=== PATIENT | male | born 1935 | race African-American/Black ===

== ENCOUNTER 2018-08-28 14:04 | Inpatient (IN) | payer OTHER ==
[~2018-08-28] VITALS: Ht 170.2 cm; Wt 74.8 kg
[~2018-08-28 14:04] MED LIST: LOSARTAN POTASS50 MG
[2018-08-28] MEDS ORDERED: COZAAR100 MG (14:35)
--- NOTE | 2018-08-28 14:40 | NUR ---
SE RECIBE PTE ALERTA Y ORIENTADO X3 EL CUAL REFIERE VENIR CON REFERIDO MEDICO EN MANO EL CUAL REFIEREN ENVIAR A PTE POR ANEMIA. PTE AL MOMENTO REFIERE 0 DE DOLOR AL MOMENTO. PTE SE COLOCA EN AREA DE OBSERVACION.
--- NOTE | 2018-08-28 15:59 | NUR ---
PACIENTE ALERTA Y ORIENTADO X3. MANEJADO POR MR. MONAE QUIEN ORIENTA A PACIENTE SOBRE TX Y PROCEDIMIENTO A REALIZAR Y REFIERE ENTENDER. ADMINISTRA MEDICAMENTOS CISCO ORDEN MEDICA. REALIZA MUESTRAS DE LABORATORIO BAJO MEDIDAS ASEPTICAS. CANALIZACION PATENTE Y BLADIMIR DE EDEMA Y ERITEMA. SE MANTIENE BAJO OBSERVACION POR CAMBIOS SIGNIFICATIVOS.
--- NOTE | 2018-08-28 23:15 | NUR ---
PT ALERTA Y ORIENTADO X3 ESFERAS EN COMPANIA DE FAMILIAR. EN TREVOR CON BARANDAS ELEVADAS Y FRENOS COLOCADOS. HEPARIN LOCK X2, VENOPUNCION EN ANTEBRAZO JOHN PATENTE. IVFLUIDS PATENTE. BAJANDO IZAIAH UNIDAD DE PRBC FRACCIONADA [id number]. CONSENTIMIENTO PARA TRANSFUCION DE AUREA Y JORGITO DERIVADOS FIRMADO POR DR REZA QUEZADA Y PT. PT [place]. SE MANTIENE BAJO OBSERVACION POR CAMBIOS EN SARIAH. PRBC BAJANDO POR IVPUMP.
[2018-08-29] MEDS ORDERED: LOSARTAN POTAS100 MG PO (11:45)
[2018-09-03] MEDS ORDERED: AMLODIPINE BESY10 MG PO (10:01)
[2018-09-03] MEDS ORDERED: B-100 COMPLEX100 MG PO (10:02)
== END 2018-09-03 13:45 | disposition home or self-care (01) | DRG 683 ==
LOC: ER 14:04 → MEDJ 08-29 00:13 → SEC-K 08-29 00:13 → MEDJ 08-29 14:04
PROVIDERS: ADMIT Internal Medicine
PROC: 30233N1 Transfusion of Nonautologous Red Blood Cells into Peripheral Vein, Percutaneous Approach (ICD-10-PCS; principal; 2018-08-29)
DX: I12.9 Hypertensive chronic kidney disease with stage 1 through stage 4 chronic kidney disease, or unspecified chronic kidney disease (principal); N18.4 Chronic kidney disease, stage 4 (severe); N17.9 Acute kidney failure, unspecified; N17.8 Other acute kidney failure; R78.81 Bacteremia; D63.1 Anemia in chronic kidney disease; Z85.46 Personal history of malignant neoplasm of prostate; D50.0 Iron deficiency anemia secondary to blood loss (chronic); Z08 Encounter for follow-up examination after completed treatment for malignant neoplasm

== ENCOUNTER → 2018-11-22 07:44 | Outpatient (CLI) | payer OTHER ==
[~2018-11-22 07:44] MED LIST changes: +AMLODIPINE BESY10 MG PO; +B-100 COMPLEX100 MG PO; +COZAAR100 MG; +LOSARTAN POTAS100 MG PO
== END | disposition home or self-care (01) ==
LOC: LAB 07:44
DX: D50.0 Iron deficiency anemia secondary to blood loss (chronic) (principal); R19.5 Other fecal abnormalities; N18.4 Chronic kidney disease, stage 4 (severe); D63.1 Anemia in chronic kidney disease; I10 Essential (primary) hypertension; D50.8 Other iron deficiency anemias; D51.8 Other vitamin B12 deficiency anemias; D55.0 Anemia due to glucose-6-phosphate dehydrogenase [G6PD] deficiency; Z80.42 Family history of malignant neoplasm of prostate; R80.8 Other proteinuria

== ENCOUNTER 2020-11-22 18:53 | Inpatient (IN) | payer OTHER ==
[~2020-11-22] VITALS: Ht 170.2 cm; Wt 68.9 kg
[2020-11-25] MEDS ORDERED: FOLIC ACID1 MG (09:54)
== END 2020-11-25 11:11 | disposition home or self-care (01) | DRG 812 ==
LOC: ER 18:53 → MEDI 11-23 13:54
PROVIDERS: ADMIT Internal Medicine; ATTEND Internal Medicine
PROC: 30233N1 Transfusion of Nonautologous Red Blood Cells into Peripheral Vein, Percutaneous Approach (ICD-10-PCS; principal; 2020-11-23)
DX: D50.0 Iron deficiency anemia secondary to blood loss (chronic) (principal); N18.4 Chronic kidney disease, stage 4 (severe); R31.0 Gross hematuria; Z08 Encounter for follow-up examination after completed treatment for malignant neoplasm; Z85.46 Personal history of malignant neoplasm of prostate; I12.9 Hypertensive chronic kidney disease with stage 1 through stage 4 chronic kidney disease, or unspecified chronic kidney disease

== ENCOUNTER 2021-12-14 14:15 | Inpatient (IN) | payer OTHER ==
[~2021-12-14] VITALS: Ht 167.6 cm; Wt 65.8 kg
[~2021-12-14 14:15] MED LIST changes: +FOLIC ACID1 MG
[2021-12-18] MEDS ORDERED: LIPITOR40 MG PO (16:46)
[2021-12-18] MEDS ORDERED: CARdura 2MG TABLET PO (16:46)
[2021-12-18] MEDS ORDERED: AMLODIPINE BESYL5 MG PO (16:46)
[2021-12-18] MEDS ORDERED: Neurin-Sl Tablet Sl SL (16:46)
[2021-12-18] MEDS ORDERED: FOLIC ACID1 MG PO (16:46)
[2021-12-18] MEDS ORDERED: B Complex CAPSULE PO (16:46)
== END 2021-12-18 21:05 | disposition home or self-care (01) | DRG 812 ==
LOC: ER 14:15 → MEDI 22:50
PROVIDERS: ADMIT Internal Medicine; ATTEND Internal Medicine
PROC: 30233N1 Transfusion of Nonautologous Red Blood Cells into Peripheral Vein, Percutaneous Approach (ICD-10-PCS; principal; 2021-12-15)
DX: D64.89 Other specified anemias (principal); I12.9 Hypertensive chronic kidney disease with stage 1 through stage 4 chronic kidney disease, or unspecified chronic kidney disease; N18.4 Chronic kidney disease, stage 4 (severe); N17.8 Other acute kidney failure; D63.1 Anemia in chronic kidney disease; E78.5 Hyperlipidemia, unspecified; E86.0 Dehydration